=== PATIENT | male | born 1980 | race Caucasian/White ===

== ENCOUNTER 2020-07-30 12:24 | Emergency (ER) | payer OTHER ==
[~2020-07-30] VITALS: Ht 180.3 cm; Wt 108.9 kg
[2020-07-30] MEDS ORDERED: XARELTO20 MG PO (12:49)
[2020-07-30] MEDS ORDERED: FLUOXETINE HCL20 MG PO (12:50)
[2020-07-30] MEDS ORDERED: SILDENAFIL CIT100 MG PO (12:50)
[2020-07-30] MEDS ORDERED: DICLOFENAC SOD100 G1 TOP (12:50)
[2020-07-30] MEDS ORDERED: PROPRANOLOL HCL20 MG PO (12:50)
[2020-07-30] MEDS ORDERED: VALACYCLOVIR500 MG PO (12:50)
[2020-07-30] MEDS ORDERED: BUSPIRONE HCL15 MG PO (12:50)
[2020-07-30] MEDS ORDERED: OMEPRAZOLE20 MG PO (12:50)
[2020-07-30] MEDS ORDERED: LIDOCAINE1 EACH TD (12:51)
== END 2020-07-30 14:54 | disposition home or self-care (01) ==
LOC: ED 12:24
DX: M54.12 Radiculopathy, cervical region (principal); F32.9 Major depressive disorder, single episode, unspecified; F41.9 Anxiety disorder, unspecified; K21.9 Gastro-esophageal reflux disease without esophagitis; Z87.891 Personal history of nicotine dependence; Z79.899 Other long term (current) drug therapy
CPT/HCPCS: 99283